=== PATIENT | male | born 1965 | race Caucasian/White ===

== ENCOUNTER 2017-06-03 06:05 | Outpatient (CLI) | payer OTHER ==
[~2017-06-03] VITALS: Ht 177.8 cm; Wt 131.1 kg
[~2017-06-03 06:05] MED LIST: ALBU8.5H4 IH; HYDR-91 PO; MULT-608 PO; NITR-65 PO; VLS80C PO
[2017-06-05] MEDS ORDERED: METO5TAB6 PO (10:20)
[2017-06-05] MEDS ORDERED: VIT D3 PO (10:20)
[2017-06-05] MEDS ORDERED: VALS320T14 PO (10:20)
[2017-06-05] MEDS ORDERED: FURO80TA3 PO (10:20)
[2017-06-05] MEDS ORDERED: [UNRECOGNIZED DRUG - OTHER] PO (10:20)
[2017-06-05] MEDS ORDERED: AMLO10TA2 PO (10:20)
[2017-06-05] MEDS ORDERED: MULTIVITAMINE PO (10:20)
[2017-06-05] MEDS ORDERED: METOPROLOL ER PO (10:20)
[2017-06-05] MEDS ORDERED: CALC-823 PO (10:20)
== END 2017-06-03 13:14 ==
LOC: PREOP 06:05
PROVIDERS: ATTEND Surgery
DX: Z01.818 Encounter for other preprocedural examination (principal); Z12.11 Encounter for screening for malignant neoplasm of colon

== ENCOUNTER → 2017-06-05 | Day surgery (SDC) | payer BC, OTHER ==
[~2017-06-05] VITALS: Ht 177.8 cm; Wt 131.1 kg
[~2017-06-05] MED LIST changes: +ACETAMINOPHEN 325 MG TABLET/CAPLET (TYLENOL) PO PRN; +AMLO10TA2 PO; +CALC-823 PO; +FURO80TA3 PO; +HYDROcodone/APAP 5 MG/325 MG (LORTAB) TAB PO PRN; +LIDOCAINE JELLY 2% (XYLOCAINE) 5 ML TUBE MM PRN; +LIDOCAINE JELLY 2% (XYLOCAINE) 5 ML TUBE ONE; +METO5TAB6 PO; +METOPROLOL ER PO; +MIDAZOLAM 2 MG/2 ML (VERSED) VIAL ONE; +MULTIVITAMINE PO; +NS IV 500 ML 0 ML ONE; +NS IV 500 ML 500 ML IV PRN; +NS IV 500 ML 500 ML ONE; +ONDANSETRON 4 MG/2 ML (SDV) Z0FRAN IV PRN; +VALS320T14 PO; +VIT D3 PO; +[UNRECOGNIZED DRUG - OTHER] PO; +diphenhydrAMINE 50 MG/ML INJ (BENADRYL) IVP ONE; +diphenhydrAMINE 50 MG/ML INJ (BENADRYL) ONE; +fentaNYL INJECTION 100 MCG/2 ML AMP ONE; +morphine INJ 10 MG/ML 1ML (SYR OR VIAL) IV PRN
--- OUTSIDE RECORDS SUMMARY | 2017-06-05 09:42 | XMS REPORT | Continuity of Care Document ---
Demographics Preferred Language Unknown Marital Status Unknown Islam Affiliation Unknown Race Unknown Ethnic Group Unknown Author Author [facility] Address Unknown Phone Unavailable Allergies Active Description Code Type Severity Reaction Onset Reported/Identified Relationship to Patient Clinical Status Yes amlodipine besylate [id number] Drug Allergy Unknown N/A 06/03/2017 Yes benazepril HCl [id number] Drug Allergy Unknown N/A 06/03/2017 Medications There is no data. Problems Date Dx Coded Attending Type Code Diagnosis Diagnosed By 03/14/2009 Ot 278.00 03/14/2009 Ot 327.23 03/14/2009 Ot 401.9 03/14/2009 Ot 493.90 09/01/2009 Ot 592.0 05/30/2010 Ot 327.23 08/16/2010 Ot 592.0 05/07/2012 466.0 BRONCHITIS, ACUTE 02/04/2014 Ot 592.0 02/04/2014 Ot 592.0 02/04/2014 Ot 753.10 02/04/2014 Ot 592.0 02/04/2014 Ot V72.81 02/04/2014 Ot V74.8 02/04/2014 Ot 592.0 02/04/2014 Ot V45.89 02/04/2014 Ot 592.0 02/04/2014 Ot 592.0 02/04/2014 Ot 753.10 02/04/2014 Ot 592.0 02/04/2014 Ot V72.81 02/04/2014 Ot V74.8 02/04/2014 Ot 592.0 02/04/2014 Ot V45.89 02/05/2014 Ot 592.0 02/05/2014 Ot 592.0 02/05/2014 Ot 753.10 02/05/2014 Ot 592.0 02/05/2014 Ot V72.81 02/05/2014 Ot V74.8 02/05/2014 Ot 592.0 02/05/2014 Ot V45.89 02/07/2014 HENNY FARNSWORTH MD Ot 592.9 02/07/2014 HENNY FARNSWORTH MD Ot 599.70 02/08/2014 HENNY FARNSWORTH MD Ot 592.9 02/08/2014 JAVAD BASS, HENNY A Ot 599.70 02/21/2014 JAVAD BASS, HENNY A Ot 592.1 02/21/2014 JAVAD BASS, HENNY Bajwa Ot 753.10 03/02/2014 JAVAD BASS, HENNY Bajwa Ot 592.9 03/02/2014 JAVAD BASS, HENNY Bajwa Ot 599.70 03/03/2014 ALLISON BASS, BEN Elvia Ot 278.01 03/03/2014 ALLISON BASS, BEN Elvia Ot 403.90 03/03/2014 ALLISON BASS, BEN Elvia Ot 493.90 03/03/2014 ALLISON BASS, BEN Elvia Ot 585.3 03/03/2014 ALLISON BASS, BEN Elvia Ot 599.70 03/03/2014 ALLISON BASS, BEN Elvia Ot 733.90 03/03/2014 ALLISON BASS, BEN Elvia Ot V13.01 03/03/2014 ALLISON BASS, BEN Elvia Ot V45.86 03/03/2014 ALLISON BASS, BEN Elvia Ot V58.69 03/03/2014 ALLISON BASS, BEN Gan Ot V85.41 03/03/2014 Ot 592.0 03/03/2014 Ot 592.0 03/03/2014 Ot 753.10 03/03/2014 Ot 592.0 03/03/2014 Ot V72.81 03/03/2014 Ot V74.8 03/03/2014 Ot 592.0 03/03/2014 Ot V45.89 03/03/2014 JAVAD BASS, HENNY Bajwa Ot 592.9 03/03/2014 JAVAD BASS, HENNY Bajwa Ot 599.70 03/03/2014 JAVAD BASS, HENNY A Ot 592.1 03/03/2014 JAVAD BASS, HENNY Bajwa Ot 753.10 03/03/2014 ALLISON BASS, BEN Gan Ot 278.01 03/03/2014 ALLISON BASS, BEN Gan Ot 403.90 03/03/2014 ALLISON BASS, BEN Gan Ot 493.90 03/03/2014 ALLISON BASS, BEN Gan Ot 585.3 03/03/2014 ALLISON BASS, BEN Gan Ot 599.70 03/03/2014 ALLISON BASS, BEN Gan Ot 733.90 03/03/2014 ALLISON BASS, BEN K Ot V13.01 03/03/2014 ALLISON BASS, BEN K Ot V45.86 03/03/2014 ALLISON BASS, BEN K Ot V58.69 03/03/2014 ALLISON BASS, BEN K Ot V85.41 03/04/2014 ALLISON BASS, BNE K Ot 733.90 03/06/2014 ALLISON BASS, BEN K Ot 733.90 03/08/2014 ALLISON BASS, BEN K Ot 278.01 03/08/2014 ALLISON BASS, BEN K Ot 403.90 03/08/2014 ALLISON BASS, BEN K Ot 493.90 03/08/2014 ALLISON BASS, BEN K Ot 585.3 03/08/2014 ALLISON BASS, BEN K Ot 599.70 03/08/2014 ALLISON BASS, BEN Elvia Ot 733.90 03/08/2014 ALLISON BASS, BEN Elvia Ot V13.01 03/08/2014 ALLISON BASS, BEN Elvia Ot V45.86 03/08/2014 ALLISON BASS, BEN K Ot V58.69 03/08/2014 ALLISON BASS, BEN K Ot V85.41 03/09/2014 JAVAD BASS, HENNY Bajwa Ot 592.1 03/09/2014 JAVAD BASS, HENNY Bajwa Ot 753.10 03/10/2014 ALLISON BASS, BEN Elvia Ot 733.90 03/12/2014 ALLISON BASS, BEN Elvia Ot 403.90 03/12/2014 ALLISON BASS, BEN Elvia Ot 585.3 03/12/2014 ALLISON BASS, BEN Elvia Ot 733.90 03/12/2014 ALLISON BASS, BEN Elvia Ot V13.01 03/15/2014 ALLISON BASS, BEN Elvia Ot 403.90 03/15/2014 ALLISON BASS, BEN Elvia Ot 585.3 03/15/2014 ALLISON BASS, BEN Elvia Ot 733.90 03/15/2014 ALLISON BASS, BEN Elvia Ot V13.01 03/17/2014 ALLISON BASS, BEN K Ot 733.90 03/22/2014 ALLISON BASS, BEN Elvia Ot 403.90 03/22/2014 ALLISON BASS, BEN Elvia Ot 585.3 03/22/2014 ALLISON BASS, BEN Elvia Ot 733.90 03/22/2014 ALLISON BASS, BEN Elvia Ot V13.01 03/25/2014 ALLISON BASS, BEN Gan Ot 733.90 04/07/2014 ALLISON BASS, BEN Elvia Ot 403.90 04/07/2014 ALLISON BASS, BEN K Ot 585.3 04/07/2014 ALLISON BASS, BEN K Ot 733.90 04/07/2014 ALLISON BASS, BEN K Ot V13.01 04/15/2014 ALLISON BASS, BEN K Ot 278.01 04/15/2014 ALLISON BASS, BEN K Ot 403.90 04/15/2014 ALLISON BASS, BEN K Ot 493.90 04/15/2014 ALLISON BASS, BEN K Ot 585.3 04/15/2014 ALLISON BASS, BEN K Ot 599.70 04/15/2014 ALLISON BASS, BEN K Ot 733.90 04/15/2014 ALLISON BASS, BEN K Ot V13.01 04/15/2014 ALLISON BASS, BEN K Ot V45.86 04/15/2014 ALLISON BASS, BEN K Ot V58.69 04/15/2014 ALLISON BASS, BEN K Ot V85.41 09/01/2014 ALLISON BASS, BEN K Ot 278.01 09/01/2014 ALLISON BASS, BEN K Ot 403.90 09/01/2014 ALLISON BASS, BEN K Ot 493.90 09/01/2014 ALLISON BASS, BEN K Ot 585.3 09/01/2014 ALLISON BASS, BEN K Ot 599.70 09/01/2014 ALLISON BASS, BEN K Ot 733.90 09/01/2014 ALLISON BASS, BEN K Ot V13.01 09/01/2014 ALLISON BASS, BEN K Ot V45.86 09/01/2014 ALLISON BASS, BEN K Ot V58.69 09/01/2014 ALLISON BASS, BEN K Ot V85.41 09/03/2014 ALLISON BASS, BEN K Ot 278.01 09/03/2014 ALLISON BASS, BEN K Ot 403.90 09/03/2014 ALLISON BASS, BEN K Ot 493.90 09/03/2014 ALLISON BASS, BEN K Ot 585.3 09/03/2014 ALLISON BASS, BEN K Ot 599.70 09/03/2014 ALLISON BASS, BEN K Ot 733.90 09/03/2014 ALLISON BASS, BEN K Ot V13.01 09/03/2014 ALLISON BASS, BEN K Ot V45.86 09/03/2014 ALLISON BASS, BEN K Ot V58.69 09/03/2014 ALLISON BASS, BEN K Ot V85.41 09/06/2014 ALLISON BASS, BEN K Ot 278.01 09/06/2014 ALLISON BASS, BEN K Ot 403.90 09/06/2014 ALLISON BASS, BEN K Ot 493.90 09/06/2014 ALLISON BASS, BEN K Ot 585.3 09/06/2014 ALLISON BASS, BEN K Ot 599.70 09/06/2014 ALLISON BASS, BEN K Ot 733.90 09/06/2014 ALLISON BASS, BEN K Ot V13.01 09/06/2014 ALLISON BASS, BEN K Ot V45.86 09/06/2014 ALLISON BASS, BEN K Ot V58.69 09/06/2014 ALLISON BASS, BEN K Ot V85.41 09/07/2014 ALLISON BASS, BEN K Ot 585.3 09/07/2014 ALLISON BASS, BEN K Ot 592.0 09/07/2014 ALLISON BASS, BEN K Ot 593.9 09/07/2014 ALLISON BASS, BEN K Ot V15.82 09/10/2014 ALLISON BASS, BEN K Ot 278.01 09/10/2014 ALLISON BASS, BEN K Ot 403.90 09/10/2014 ALLISON BASS, BEN K Ot 493.90 09/10/2014 ALLISON BASS, BEN K Ot 585.3 09/10/2014 ALLISON BASS, BEN K Ot 599.70 09/10/2014 ALLISON BASS, BEN K Ot 733.90 09/10/2014 ALLISON BASS, BEN K Ot V13.01 09/10/2014 ALLISNO BASS, BEN K Ot V45.86 09/10/2014 ALLISON BASS, BEN K Ot V58.69 09/10/2014 ALLISON BASS, BEN K Ot V85.41 09/24/2014 ALLISON BASS, BEN K Ot 585.3 09/24/2014 ALLISON BASS, BEN K Ot 592.0 09/24/2014 ALLISON BASS, BEN K Ot 593.9 09/24/2014 ALLISON BASS, BEN K Ot V15.82 09/30/2014 ALLISON BASS, BEN K Ot 278.01 09/30/2014 ALLISON BASS, BEN K Ot 403.90 09/30/2014 ALLISON BASS, BEN K Ot 493.90 09/30/2014 ALLISON BASS, BEN K Ot 585.3 09/30/2014 ALLISON BASS, BEN K Ot 599.70 09/30/2014 ALLISON BASS, BEN K Ot 733.90 09/30/2014 ALLISON BASS, BEN K Ot V13.01 09/30/2014 ALLISON BASS, BEN Elvia Ot V45.86 09/30/2014 ALLISON BASS, BEN Gan Ot V58.69 09/30/2014 ALLISON BASS, BEN Elvia Ot V85.41 12/02/2014 ALLISON BASS, BEN K Ot 278.01 12/02/2014 ALLISON BASS, BEN K Ot 403.90 12/02/2014 ALLISON BASS, BEN K Ot 493.90 12/02/2014 ALLISON BASS, BEN Elvia Ot 585.3 12/02/2014 ALLISON BASS, BEN K Ot 599.70 12/02/2014 ALLISON BASS, BEN K Ot 733.90 12/02/2014 ALLISON BASS, BEN Gan Ot E66.01 12/02/2014 ALLISON BASS, BEN Gan Ot I12.9 12/02/2014 ALLISON BASS, BEN Gan Ot N18.3 12/02/2014 ALLISON BASS, BEN Gan Ot R31.9 12/02/2014 ALLISON BASS, BEN Gan Ot V13.01 12/02/2014 ALLISON BASS, BEN Elvia Ot V45.86 12/02/2014 ALLISON BASS, BEN Gan Ot V58.69 12/02/2014 ALLISON BASS, BEN Gan Ot V85.41 12/02/2014 ALLISON BASS, BEN Gan Ot Z68.41 12/02/2014 ALLISON BASS, BEN Gan Ot Z87.442 12/02/2014 ALLISON BASS, BEN Gan Ot Z98.84 09/30/2015 KEYSHAWN BAH Ot G47.33 OBSTRUCTIVE SLEEP APNEA (ADULT) (PEDIATR 09/30/2015 ALLISON BASS, BEN Gan Ot 733.90 BONE CARTILAGE DIS NOS 09/30/2015 ALLISON BASS, BEN Gan Ot 403.90 HYPTNSV CHR KID DIS, UNSPEC, W CHR KD ST 09/30/2015 ALLISON BASS, BEN Gan Ot 585.3 CHRONIC KIDNEY DISEASE, STAGE III (MODER 09/30/2015 ALLISON BASS, BEN Gan Ot 733.90 BONE CARTILAGE DIS NOS 09/30/2015 ALLISON BASS, BEN Gan Ot V13.01 PERSONAL HISTORY OF URINARY CALCULI 10/05/2015 KEYSHAWN BAH TUBING MACHINE OPERATOR Ot G47.33 OBSTRUCTIVE SLEEP APNEA (ADULT) (PEDIATR 06/03/2017 ALLISON BASS, BEN aGn Ot 733.90 BONE CARTILAGE DIS NOS 06/03/2017 ALLISON BASS, BEN Gan Ot 403.90 HYPTNSV CHR KID DIS, UNSPEC, W CHR KD ST 06/03/2017 ALLISON BASS, BEN K Ot 585.3 CHRONIC KIDNEY DISEASE, STAGE III (MODER 06/03/2017 ALLISON BASS, BEN K Ot 733.90 BONE CARTILAGE DIS NOS 06/03/2017 ALLISON BASS, BEN K Ot V13.01 PERSONAL HISTORY OF URINARY CALCULI 06/03/2017 ALLISON BASS, BEN K Ot 733.90 BONE CARTILAGE DIS NOS 06/03/2017 ALLISON BASS, BEN K Ot 403.90 HYPTNSV CHR KID DIS, UNSPEC, W CHR KD ST 06/03/2017 ALLISON BASS, BEN K Ot 585.3 CHRONIC KIDNEY DISEASE, STAGE III (MODER 06/03/2017 ALLISON BASS, BEN K Ot 733.90 BONE CARTILAGE DIS NOS 06/03/2017 ALLISON BASS, BEN K Ot V13.01 PERSONAL HISTORY OF URINARY CALCULI 06/03/2017 ALLISON BASS, BEN K Ot 278.01 06/03/2017 ALLISON BASS, BEN K Ot 403.90 06/03/2017 ALLISON BASS, BEN K Ot 493.90 06/03/2017 ALLISON BASS, BEN K Ot 585.3 06/03/2017 ALLISON BASS, BEN K Ot 599.70 06/03/2017 ALLISON BASS, BEN K Ot 733.90 06/03/2017 ALLISON BASS, BEN K Ot V13.01 06/03/2017 ALLISON BASS, BEN K Ot V45.86 06/03/2017 ALLISON BASS, BEN K Ot V58.69 06/03/2017 ALLISON BASS, BEN K Ot V85.41 Procedures There is no data. Results There is no data. Encounters ACCT No. Visit Date/Time Discharge Status Pt. Type Provider Facility Loc./Unit Complaint [id number] 05/07/2012 11:04:00 05/07/2012 23:59:59 CLS Outpatient [id number] 06/03/2017 06:05:00 06/03/2017 13:14:00 DIS Outpatient FRED WHITMORE MD [facility] PREOP COLONOSCOPY [id number] 09/30/2015 09:17:00 09/30/2015 09:25:00 DIS Outpatient KEYSHAWN BAH [facility] SLEEP OBSERVED APNEA, SNORING [id number] 12/03/2014 00:08:00 12/03/2014 23:59:59 CLS Preadmit BEN COOPER MD [facility] ONC [id number] 09/10/2014 10:59:00 12/02/2014 00:01:00 DIS Outpatient BEN COOPER MD [facility] ONC [id number] 09/03/2014 09:25:00 09/03/2014 23:59:59 CLS Outpatient BEN COOPER MD [facility] RAD [id number] 03/15/2014 09:31:00 03/15/2014 23:59:59 CLS Outpatient BEN COOPER MD [facility] ONC [id number] 03/10/2014 07:16:00 03/10/2014 23:59:59 CLS Outpatient BEN COOPER MD [facility] RAD LYTIC BONE LESIONS [id number] 03/09/2014 08:34:00 03/09/2014 23:59:59 CLS Outpatient BEN COOPER MD [facility] RAD LESIONS BONE AND PELVIS [id number] 03/03/2014 09:09:00 03/03/2014 23:59:59 CLS Outpatient BEN COOPER MD [facility] RAD [id number] 02/19/2014 08:00:00 02/19/2014 23:59:59 CLS Outpatient HENNY FARNSWORTH MD [facility] RAD [id number] 02/05/2014 08:15:00 02/05/2014 23:59:59 CLS Outpatient HENNY FARNSWORTH MD [facility] RAD [id number] 06/05/2017 10:00:00 FRED Carter MD [facility] ENDO SCREENING [id number] 08/30/2010 13:31:00 Document Registration [id number] 08/16/2010 05:40:00 Document Registration [id number] 08/15/2010 13:08:00 Document Registration [id number] 07/19/2010 11:02:00 Document Registration [id number] 05/29/2010 19:56:00 Document Registration [id number] 09/02/2009 00:00:00 Document Registration [id number] 06/06/2009 10:31:00 Document Registration [id number] 03/14/2009 09:09:00 Document Registration
[2017-06-05 10:05] VITALS: BP 145/86
[2017-06-05] MEDS: fentaNYL INJECTION 100 MCG/2 ML AMP IVP PRN ×4 (11:28→11:57)
[2017-06-05] MEDS: MIDAZOLAM 2 MG/2 ML (VERSED) VIAL IVP PRN ×4 (11:30→12:00)
--- NOTE | 2017-06-05 11:33 | Conscious Sedation/ASA ---
Conscious Sedation Pre-Proced Time Reviewed: 11:15 ASA Class: 2 Airway Mallampati Classification: (yocha dehe appropriate class) I. II. III, IV Lungs Heart ASA score ASA 1: a normal healthy patient ASA 2: a patient with a mild systemic disease (mid diabetes, controlled hypertension, obesity ASA 3: a patient with a severe systemic disease that limits activity (angina , COPD, prior Myocardial infarction) ASA 4: a patient with an incapacitating disease that is a constant threat to life (CHF, renal failure) ASA 5: a moribund patient not expected to survive 24 hrs. (ruptured aneurysm) ASA 6: a declared brain patient whose organs are being harvested. For emergent operations, add the letter E after the classification Grade 2 Sedation Plan: Analgesia, Amnesia, Plan communicated to team members, Discussed options with patient/fam, Discussed risks with patient/fam Note The patient is an appropriate candidate to undergo the planned procedure, sedation, and anesthesia. The patient immediately re-assessed prior to indication. FRED WHITMORE MD Jun 05, 2017 11:33 am
--- NOTE | 2017-06-05 11:34 | Progress Note-Pre Operative ---
Pre-Operative Progress Note H&P Reviewed The H&P was reviewed, patient examined and no changes noted. Date Seen by Provider: Jun 05, 2017 Time Seen by Provider: 11:15 Date H&P Reviewed: Jun 05, 2017 Time H&P Reviewed: 11:15 Pre-Operative Diagnosis: screening, family hx FRED WHITMORE MD Jun 05, 2017 11:34 am
--- NOTE | 2017-06-05 12:21 | Progress Note-Post Operative ---
Post-Operative Progess Note Surgeon (s)/Resource Management Planner (s) Surgeon FRED WHITMORE MD Resource Management Planner: none Pre-Operative Diagnosis screening, family hx Post-Operative Diagnosis chronic stage 2 ext and int hemorrhoids, mild sigmoid diverticulosis, pedunclulated polyp ascending colon Procedure & Operative Findings Date of Procedure 06/05/17 Procedure Performed/Findings Colonoscopy with snare polypectomy and submucosal injection. Anesthesia Type CS Estimated Blood Loss Estimated blood loss (mL): minimal Specimens/Packing Specimens Removed ascending colon polyp FRED WHITMORE MD Jun 05, 2017 12:21 pm
--- NOTE | 2017-06-05 12:22 | Discharge Inst-Surgical ---
D/C Lap Instructions-HAIM Will call for Follow Up Activity as tolerated High Fiber Diet 25g or more per day Avoid Alcohol, Caffeine, Spicy [place] and Acid foods. Drink 64 fluid oz or more of fluids per day. Symptoms to Report: Fever over 101 degree F, Nausea/Vomiting If any problems/questions: Contact your physician or go to Emergency Room FRED WHITMORE MD Jun 05, 2017 12:22 pm
[2017-06-05 12:30] VITALS: BP 112/64
[2017-06-05 13:00] VITALS: BP 113/75
--- NOTE | 2017-06-05 15:34 | OPERATIVE REPORT ---
DATE OF SERVICE: 06/05/2017 ATTENDING PRIMARY CARE PHYSICIAN: Anrdew Payne DO. PREOPERATIVE DIAGNOSIS: Screening colonoscopy with family history of colon cancer. POSTOPERATIVE DIAGNOSES: Chronic stage II external and internal hemorrhoids, mild sigmoid diverticulosis, pedunculated polyp of the ascending colon. PROCEDURE: Colonoscopy with snare polypectomy and submucosal injection. SURGEON: Fred Whitmore MD. ANESTHESIA: Conscious sedation. ESTIMATED BLOOD LOSS: Minimal. FINDINGS: Chronic stage II external and internal hemorrhoids, mild sigmoid diverticulosis, pedunculated polyp of the ascending colon approximately 4 to 5 mm in size. DISPOSITION: The patient tolerated the procedure well. INDICATIONS: The patient is a 51-year-old male in need of a screening colonoscopy. He has not had a colonoscopy up to this point in his life. He does not report any major issues with diarrhea nor constipation as well as no red blood per rectum nor any dark tarry stools. He does state that his brother had some form of gastrointestinal cancer that encompassed a small and large bowel diagnosed at age 37. DESCRIPTION OF PROCEDURE: The patient was brought to the endoscopy suite, laid in left lateral decubitus position. After adequate IV pain and sedative medications and conscious sedation anesthesia, a digital rectal examination was performed. Chronic stage II external and internal hemorrhoids were identified which were not actively edematous nor inflamed and no bleeding. Normal sphincter tone was felt and there were no palpable masses. Prostate gland was palpable and appeared normal. The endoscope was then intubated into the anus and the rectum and gently insufflated. The endoscope was then advanced through the valves of Forbes of the rectum with no polyps or any neoplasms identified. The endoscope was then advanced through the sigmoid colon where mild sigmoid diverticulosis identified. The endoscope was then advanced to the remainder of the descending, transverse, ascending colon. At the level of the proximal ascending colon, a pedunculated polyp approximately 4 to 5 mm in size was identified. This was completely removed at its base using a snare and electrocautery. This was then retrieved with a net and sent to pathology. The endoscope was then advanced to the remainder of the ascending colon to the cecum which was normal. On the way back out at the area of the polypectomy, we submucosally injected black ink for potential future reference. The endoscope was then slowly withdrawn while taking a second look and suctioning of residual air with no additional findings. The patient tolerated the procedure well. We will await the biopsy results. If this is an adenomatous polyp with a villous component, we will have him follow up in approximately 3 years. If not, then we will have him follow up in approximately 5 years. Job ID: [id number] DocumentID: [id number] Dictated Date: 06/05/2017 12:20:00 Braiding Operator Date: 06/05/2017 15:33:25 Dictated By: FRED WHITMORE MD
== END | disposition home or self-care (01) ==
LOC: ENDO 09:38
PROVIDERS: ATTEND Surgery
DX: Z12.11 Encounter for screening for malignant neoplasm of colon (principal); Z80.0 Family history of malignant neoplasm of digestive organs; K63.5 Polyp of colon; K57.30 Diverticulosis of large intestine without perforation or abscess without bleeding; K64.1 Second degree hemorrhoids; I12.9 Hypertensive chronic kidney disease with stage 1 through stage 4 chronic kidney disease, or unspecified chronic kidney disease; N18.4 Chronic kidney disease, stage 4 (severe); Z79.899 Other long term (current) drug therapy; Z98.84 Bariatric surgery status